=== PATIENT | male | born 1965 | race Caucasian/White ===

== ENCOUNTER 2019-08-15 11:46 | Emergency (ER) | payer MEDICAID ==
[~2019-08-15] VITALS: Ht 167.6 cm; Wt 83.9 kg
[2019-08-15 12:16] VITALS: BP 138/96
--- NOTE | 2019-08-15 12:19 | NUR ---
TO LOBBY, VSS. AWAITING BED IN ED.
--- NOTE | 2019-08-15 13:54 | NUR ---
Patient ambulated to bed 4. RN evaluating patient at bedside.
--- NOTE | 2019-08-15 13:54 | NUR ---
PT AMBULATED TO ER BED 04
--- NOTE | 2019-08-15 13:58 | NUR ---
53 Y/O M C/O EPISODES OF "ANXIETY" THAT BEGAN SUNDAY R/T FAMILY STRESSORS. PT STATES HE IS HAVING TROUBLE SLEEPING AT NIGHT, FEELS LIKE HIS HEART IS RACING AND HE IS UNABLE TO CALM HIMSELF DOWN. PT DENIES THE FEELING OF ANXIETY AT THIS TIME, STATES HE JUST FEELS TIRED. PT DENIES HAVING THIS FEELING IN THE PAST. NKA PMH: DENIES
--- NOTE | 2019-08-15 14:49 | NUR ---
PT RESTING COMFORTABLY, VSS.
--- NOTE | 2019-08-15 15:18 | NUR ---
DR FAIRBANKS AT BEDSIDE EXAMINING PATIENT.
[2019-08-15 15:22] VITALS: BP 142/78
--- NOTE | 2019-08-15 15:22 | NUR ---
Patient discharged with v/s stable. Written and verbal after care instructions given and explained. Patient alert, oriented and verbalized understanding of instructions. [g ED.DCMODE] with [g ED.D/CMODE]. All questions addressed prior to discharge. ID band removed. Patient advised to follow up with PMD. Rx of [] given. Patient educated on indication of medication including possible reaction and side effects. Opportunity to ask questions provided and answered. Patient discharged with v/s stable. Written and verbal after care instructions given and explained. Patient verbalized understanding. Ambulatory with steady gait. All questions addressed prior to discharge. Advised to follow up with PMD.
== END 2019-08-15 15:22 | disposition home or self-care (01) ==
LOC: MED 11:46
DX: F43.9 Reaction to severe stress, unspecified (principal); F41.1 Generalized anxiety disorder
CPT/HCPCS: 99283

== ENCOUNTER 2019-11-06 12:51 | Emergency (ER) | payer SELFPAY ==
[~2019-11-06] VITALS: Ht 170.2 cm; Wt 85.7 kg
[2019-11-06 12:55] VITALS: BP 154/88
--- NOTE | 2019-11-06 12:55 | NUR ---
54/M presents ambulatory to ED, requesting for work clearance. resolved cough and sore throat, which started 6 days ago. reports only mild congestion/rhinorrhea and L eye redness. denies fever/chills, CP/SOB. Pt awake and alert, skin normal color warm and dry, rr even and unlabored. Lung sounds clear BL. hx seasonal allergies; denies rx. otc nyquil with relief.
[2019-11-06 14:06] VITALS: BP 154/88
--- NOTE | 2019-11-06 14:06 | NUR ---
Patient discharged with v/s stable. Written and verbal after care instructions given and explained. Patient verbalized understanding. Ambulatory with steady gait. All questions addressed prior to discharge. Advised to follow up with PMD.
== END 2019-11-06 14:06 | disposition home or self-care (01) ==
LOC: MED 12:51
DX: R09.89 Other specified symptoms and signs involving the circulatory and respiratory systems (principal); R05 Cough; J02.9 Acute pharyngitis, unspecified; Z02.89 Encounter for other administrative examinations
CPT/HCPCS: 99281